=== PATIENT | male | born 1995 | race Asian ===

== ENCOUNTER 2017-03-31 08:18 | Emergency (ER) | END 2017-03-31 10:37 | disposition home or self-care (01) ==

== ENCOUNTER 2017-09-09 12:01 | Emergency (ER) | END 2017-09-09 13:53 | disposition home or self-care (01) ==

== ENCOUNTER 2017-12-21 19:10 | Emergency (ER) | END 2017-12-21 21:58 | disposition home or self-care (01) ==

== ENCOUNTER 2018-03-09 12:38 | Emergency (ER) | END 2018-03-09 14:57 | disposition home or self-care (01) ==

== ENCOUNTER 2018-06-15 08:08 | Emergency (ER) | payer OTHER ==
[~2018-06-15] VITALS: Wt 51.0 kg
[~2018-06-15 08:08] MED LIST: ACET500C5 PO; CEPH-443 PO; GUAI5SYR2 PO; HYDR-4011 PO; IBUP-1542 PO; NAPR-985 PO; ONDA8TAB14 PO
[2018-06-15 08:13] VITALS: BP 145/90; PULSE 99; RESP 18
[2018-06-15] MEDS ORDERED: ACETAMINOPHEN 500 MG TAB PO STA (08:28)
[2018-06-15] MEDS ORDERED: IBUP800T48 PO (08:29)
[2018-06-15] MEDS ORDERED: ACET325T33 PO (08:29)
[2018-06-15] MEDS ORDERED: AZIT250T PO (08:29)
[2018-06-15] MEDS ORDERED: PROM6.2515 PO (08:29)
[2018-06-15] MEDS ORDERED: IBUPROFEN 800 MG TAB PO ONE (08:30)
--- NOTE | 2018-06-15 09:24 | ERD ---
ER Documentation Chief Complaint Chief Complaint SORE THROAT,LOMELI, COUGH HPI 22-year-old male presenting with fever and sore throat with cough. Patient has a coarse cough with productive sputum. Patient has no shortness of breath. Took NyQuil last night but no medications today. Has a mild runny nose with mild sore throat. Medical history is asthma. NKDA. Surgical history cyst removal on his hand. Social history smokes 1/2 pack of cigarettes a day ROS All systems reviewed and are negative except as per history of present illness. Medications Home Meds Active Scripts Azithromycin* (Zithromax*) 250 Mg Tablet, 250 MG PO .ZPACK DIRECTED, #6 TAB TAKE 500 MG (2 TABS) THE FIRST DAY THEN 250 MG (1 TAB) DAYS 2-5 Prov:ANKIT BOOTH PA-C 06/15/18 Promethazine Hcl* (Promethazine Hcl* Syrup) 6.25 Mg/5 Ml Syrup, 6.25 MG PO Q6H PRN for COUGH, #100 ML Prov:ANKIT BOOTH PA-C 06/15/18 Acetaminophen* (Tylenol*) 325 Mg Tablet, 2 TAB PO Q8 PRN for PAIN AND OR ELEVATED TEMP, #20 TAB Prov:ANKIT BOOTH PA-C 06/15/18 Ibuprofen* (Motrin*) 800 Mg Tab, 800 MG PO Q6, #30 TAB Prov:ANKIT BOOTH PA-C 06/15/18 Ondansetron (Ondansetron Odt) 8 Mg Tab.rapdis, 8 MG PO Q6H PRN for NAUSEA AND/OR VOMITING, #8 TAB Prov:KAUSHAL JOHNSON MD 03/09/18 Naproxen* (Naprosyn*) 500 Mg Tablet, 500 MG PO BID PRN for PAIN AND/OR INFLAMMATION, #30 TAB Prov:SEFERINO COLLIER PA-C 12/21/17 Cephalexin* (Keflex*) 500 Mg Capsule, 500 MG PO QID for 5 Days, CAP Prov:SEFERINO COLLIER PA-C 12/21/17 Ibuprofen* (Motrin*) 600 Mg Tab, 600 MG PO Q8 PRN for PAIN AND OR ELEVATED TEMP, #15 TAB Prov:TREE RESENDIZ MD 09/09/17 Hydrocodone/Acetaminophen ([place] 5-325 Tablet) 1 Each Tablet, 1 TAB PO Q6H PRN for PAIN, #15 TAB Prov:TREE RESENDIZ MD 09/09/17 Guaifenesin-Dextromethorphan* (Robitussin* DM) 100MG/10MG/5ML Syrup, 10 ML PO Q6H for 5 Days, ML Prov:FERNANDO MONTALVO PA-C 03/31/17 Acetaminophen* (Tylophen*) 500 Mg Capsule, 1 CAP PO Q6H PRN for PAIN AND OR ELEVATED TEMP, #30 CAP Prov:FERNANDO MONTALVO PA-C 03/31/17 Naproxen* (Naprosyn*) 500 Mg Tablet, 500 MG PO BID PRN for PAIN AND/OR INFLAMMATION, #30 TAB Prov:FERNANDO MONTALVO PA-C 03/31/17 Allergies Allergies: Coded Allergies: No Known Allergy (Unverified , 03/09/18) PMhx/Soc History of Surgery: Yes (RIGHT WRIST SX) Anesthesia Reaction: No Hx Neurological Disorder: No Hx Respiratory Disorders: Yes (ASTHMA) Hx Cardiac Disorders: No Hx Psychiatric Problems: No Hx Miscellaneous Medical Probl: Yes (right wrist ganglion cyst) Hx Alcohol Use: Yes (occasional) Hx Substance Use: No Hx Tobacco Use: Yes Smoking Status: Current every day smoker FmHx Family History: No diabetes, No coronary disease, No other Physical Exam Vitals Vital Signs Date Temp Pulse Resp B/P (MAP) Pulse Ox O2 O2 Flow FiO2 Time Delivery Rate 06/15/18 100.0 08:38 06/15/18 100.0 08:38 06/15/18 100.1 99 18 145/90 99 08:13 (108) Physical Exam GENERAL: The patient is well-appearing, well-nourished, in no acute distress HEENT: Atraumatic. Conjunctivae are pink. Pupils equal, round, and reactive to light. There is no scleral icterus. Tympanic membranes clear bilaterally. Oropharynx clear. NECK: C-spine is soft and supple. There is no meningismus. There is no cervical lymphadenopathy. CHEST: Coarse breath sounds heard throughout with no focal rhonchi. No wheezing. HEART: Regular rate and rhythm. No murmurs, clicks, rubs or gallops. Results 24 hrs Current Medications Medications Dose Sig/Francisco Start Time Status Last (Trade) Ordered Route PRN Stop Time Admin Dose Reason Admin Ibuprofen 800 mg ONCE ONCE 06/15/18 DC 06/15/18 (Motrin) PO 08:30 08:38 06/15/18 08:31 1,000 mg ONCE STAT 06/15/18 DC 06/15/18 Acetaminophen PO 08:28 08:38 (Tylenol 06/15/18 08:29 Tab) Procedures/MDM MDM: 22-year-old male presenting with coarse breath sounds. I have concern for early pneumonia especially since patient has a history of asthma. I will treat prophylactically for aunt with antibiotics. Patient is discharged stricter precautions and told to follow-up with primary care within 1-2 days for close evaluation. Patient is told if symptoms change or worsen to return immediately to the ER. All questions answered at discharge Departure Diagnosis: Primary Impression: Cough Additional Impression: Sore throat Condition: Stable Patient Instructions: Self-Care for Sore Throats, Cough, Chronic, Uncertain Cause, (Adult) Referrals: [facility] YOU HAVE RECEIVED A MEDICAL SCREENING EXAM AND THE RESULTS INDICATE THAT YOU DO NOT HAVE A CONDITION THAT REQUIRES URGENT TREATMENT IN THE EMERGENCY DEPARTMENT. FURTHER EVALUATION AND TREATMENT OF YOUR CONDITION CAN WAIT UNTIL YOU ARE SEEN IN YOUR DOCTORS OFFICE WITHIN THE NEXT 1-2 DAYS. IT IS YOUR RESPONSIBILITY TO MAKE AN APPOINTMENT FOR FOLOW-UP CARE. IF YOU HAVE A PRIMARY DOCTOR --you should call your primary doctor and schedule an appointment IF YOU DO NOT HAVE A PRIMARY DOCTOR YOU CAN CALL OUR PHYSICIAN REFERRAL HOTLINE AT IF YOU CAN NOT AFFORD TO SEE A PHYSICIAN YOU CAN CHOSE FROM THE FOLLOWING [facility] CLINICS [facility] [id number] [facility]. [facility] [address] [facility] [facility] [address] [facility]. [facility] [address] [facility]. [facility] [address] [facility]. [facility]. [address] Additional Instructions: FOLLOW UP WITH YOUR PRIMARY CARE PHYSICIAN TOMORROW.Return to this facility if you are not improving as expected. ANKIT BOOTH PA-C Jun 15, 2018 09:24
== END 2018-06-15 08:44 | disposition home or self-care (01) ==
LOC: FTE 08:08
DX: J02.9 Acute pharyngitis, unspecified (principal); F17.210 Nicotine dependence, cigarettes, uncomplicated; J45.909 Unspecified asthma, uncomplicated
CPT/HCPCS: 99283

== ENCOUNTER 2018-06-17 02:29 | Emergency (ER) | payer OTHER ==
[~2018-06-17] VITALS: Ht 152.4 cm; Wt 51.8 kg
[~2018-06-17 02:29] MED LIST changes: +ACET325T33 PO; +AZIT250T PO; +IBUP800T48 PO; +PROM6.2515 PO
[2018-06-17 02:36] VITALS: Ht 152.4 cm; Wt 51.8 kg
--- NOTE | 2018-06-17 06:03 | ERD ---
ER Documentation Chief Complaint Chief Complaint nasal congestion/headache x 6 days. on atb HPI This is a 22-year-old male who presents here in emergency department with complaints of nasal congestion, productive cough for about 6 days. Stated that he is already on azithromycin without relief. Denies headache, head injury, loss of consciousness, dizziness, neck pain, neck stiffness, throat pain, difficulty swallowing, difficulty breathing lying flat, shoulder pain, chest pain, back pain, abdominal pain, nausea, vomiting, constipation, diarrhea, urinary symptoms, loss of bowel and bladder control, trauma, injury, falls, difficulty walking due to pain, numbness or tingling sensation, calf pain, recent travel, recent major surgery in the last 3 weeks, calf pain, recent long travel, recent exposure to any illness, recent antibiotic use in the last 3 months, fever, chills, seizures. Past medical history: Surgical history: Social: Denies smoking, use of alcoholic beverages, use of illegal drugs. ROS All systems reviewed and are negative except as per history of present illness. Medications Home Meds Active Scripts Benzonatate* (Tessalon Perle*) 100 Mg Capsule, 100 MG PO Q8H PRN for COUGH, #15 CAP Prov:CAMILO ZALDIVAR 06/17/18 Ondansetron Hcl* (Zofran*) 4 Mg Tablet, 4 MG PO Q8H PRN for NAUSEA AND/OR VOMITING, #30 TAB Prov:CAMILO ZALDIVAR 06/17/18 Loratadine* (Loratadine*) 10 Mg Tablet, 10 MG PO DAILY, #30 TAB Prov:CAMILO ZALDIVAR 06/17/18 Prednisone* (Prednisone*) 20 Mg Tab, 40 MG PO DAILY for 4 Days, TAB Prov:CAMILO ZALDIVAR 06/17/18 Ibuprofen* (Motrin*) 600 Mg Tab, 600 MG PO Q6H PRN for PAIN AND OR ELEVATED TEMP, #30 TAB Prov:CAMILO ZALDIVAR 06/17/18 Amoxicillin/Potassium Clav (Amox-Clav 875-125 mg Tablet) 875-125 mg Tab, 1 TAB PO BID for 10 Days, #20 TAB Prov:CAMILO ZALDIVAR 06/17/18 Azithromycin* (Zithromax*) 250 Mg Tablet, 250 MG PO .AIDAN DIRECTED, #6 TAB TAKE 500 MG (2 TABS) THE FIRST DAY THEN 250 MG (1 TAB) DAYS 2-5 Prov:ANKIT BOOTH PA-C 06/15/18 Promethazine Hcl* (Promethazine Hcl* Syrup) 6.25 Mg/5 Ml Syrup, 6.25 MG PO Q6H PRN for COUGH, #100 ML Prov:ANKIT BOOTH PA-C 06/15/18 Acetaminophen* (Tylenol*) 325 Mg Tablet, 2 TAB PO Q8 PRN for PAIN AND OR ELEVATED TEMP, #20 TAB Prov:ANKIT BOOTH PA-C 06/15/18 Ibuprofen* (Motrin*) 800 Mg Tab, 800 MG PO Q6, #30 TAB Prov:ANKIT BOOTH PA-C 06/15/18 Ondansetron (Ondansetron Odt) 8 Mg Tab.rapdis, 8 MG PO Q6H PRN for NAUSEA AND/OR VOMITING, #8 TAB Prov:KAUSHAL JOHNSON MD 03/09/18 Naproxen* (Naprosyn*) 500 Mg Tablet, 500 MG PO BID PRN for PAIN AND/OR INFLAMMATION, #30 TAB Prov:SEFERINO COLLIER PA-C 12/21/17 Cephalexin* (Keflex*) 500 Mg Capsule, 500 MG PO QID for 5 Days, CAP Prov:SEFERINO COLLIERC 12/21/17 Ibuprofen* (Motrin*) 600 Mg Tab, 600 MG PO Q8 PRN for PAIN AND OR ELEVATED TEMP, #15 TAB Prov:TREE RESENDIZ MD 09/09/17 Hydrocodone/Acetaminophen ([place] 5-325 Tablet) 1 Each Tablet, 1 TAB PO Q6H PRN for PAIN, #15 TAB Prov:TREE RESENDIZ MD 09/09/17 Guaifenesin-Dextromethorphan* (Robitussin* DM) 100MG/10MG/5ML Syrup, 10 ML PO Q6H for 5 Days, ML Prov:FERNANDO MONTALVO PA-C 03/31/17 Acetaminophen* (Tylophen*) 500 Mg Capsule, 1 CAP PO Q6H PRN for PAIN AND OR E LEVATED TEMP, #30 CAP Prov:CIARA MONTALVOArik Carson PA-C 03/31/17 Naproxen* (Naprosyn*) 500 Mg Tablet, 500 MG PO BID PRN for PAIN AND/OR INFLAMMATION, #30 TAB Prov:FERNANDO MONTALVOMoe CAMARGO 03/31/17 Allergies Allergies: Coded Allergies: No Known Allergy (Unverified , 03/09/18) PMhx/Soc History of Surgery: Yes (RIGHT WRIST SX) Anesthesia Reaction: No Hx Neurological Disorder: No Hx Respiratory Disorders: Yes (ASTHMA) Hx Cardiac Disorders: No Hx Psychiatric Problems: No Hx Miscellaneous Medical Probl: Yes (right wrist ganglion cyst) Hx Alcohol Use: Yes (occasional) Hx Substance Use: No Hx Tobacco Use: Yes Physical Exam Vitals Physical Exam Const: No acute distress Head: Atraumatic Eyes: Normal Conjunctiva ENT: Normal External Ears, Nose and Mouth. Bilateral ears: TMs are not erythematous with no bleeding. No discharge. No hearing loss. Nose: There is frontal and maxillary sinus tenderness palpation. Throat: Uvula is midline and nondisplaced. Tonsils are +1 bilaterally with redness but no exudates or tolerating secretions with patent airway. Speaks full and clear sentences. Neck: Full range of motion. No meningismus. No nuchal rigidity. No signs of meningeal irritation. Resp: Clear to auscultation bilaterally. No accessory muscle use in breathing no retractions noted. Cardio: Regular rate and rhythm, no murmurs Abd: Soft, non tender, non distended. Normal bowel sounds. No abdominal tenderness. Skin: No petechiae or rashes. Color appears normal for ethnicity. No skin tenting. No signs of severe dehydration. Back: No midline or flank tenderness Ext: No cyanosis, or edema Neur: Awake and alert. No neurological deficit. Psych: Normal Mood and Affect Procedures/MDM I offered diagnostic test but patient and family member strongly refused. Diagnostic tests: Clinical exam. Treatment: Not applicable. Re-evaluation: Not applicable. Differential diagnosis I have low suspicion for sepsis, meningitis, peritonsillar abscess, mastoiditis, airway obstruction, pneumonia, bronchospasm, status asthmaticus, severe dehydration, acute abdomen. Final diagnosis: Sinusitis. Bronchitis. Prescription: Continue taking your azithromycin. Augmentin added. Motrin. Claritin. Prednisone. Follow-up with PCP in the next 24-48 hours. Come back here in the emergency department for any new symptoms or any worsening symptoms. All questions and concerns were answered. Patient and family members verbalized understanding and agreed with plan of care. Hemodynamically stable on discharge. Departure Diagnosis: Primary Impression: Sinusitis Additional Impression: Bronchitis Condition: Stable Additional Instructions: Follow-up with PCP in the next 24-48 hours. Come back here in the emergency department for any new symptoms or any worsening symptoms. CAMILO ZALDIVAR Jun 17, 2018 06:03
[2018-06-17] MEDS ORDERED: AMOX1TAB10 PO (06:04)
[2018-06-17] MEDS ORDERED: IBUP-1542 PO (06:05)
[2018-06-17] MEDS ORDERED: ONDA4TAB8 PO (06:05)
[2018-06-17] MEDS ORDERED: LORA10TA3 PO (06:05)
[2018-06-17] MEDS ORDERED: PRED20TA PO (06:05)
[2018-06-17] MEDS ORDERED: BENZ-6 PO (06:06)
[2018-06-17 06:36] VITALS: BP 123/89; PULSE 88; RESP 16
== END 2018-06-17 06:38 | disposition home or self-care (01) ==
LOC: FTE 02:29
DX: J32.9 Chronic sinusitis, unspecified (principal); J40 Bronchitis, not specified as acute or chronic; Z87.891 Personal history of nicotine dependence
CPT/HCPCS: 99283

== ENCOUNTER 2018-10-28 23:17 | Emergency (ER) | payer OTHER ==
[~2018-10-28] VITALS: Ht 152.4 cm; Wt 56.1 kg
[~2018-10-28 23:17] MED LIST changes: +AMOX1TAB10 PO; +BENZ-6 PO; +LORA10TA3 PO; +ONDA4TAB8 PO; +PRED20TA PO
[2018-10-28 23:20] VITALS: BP 130/89; PULSE 120; RESP 18; Ht 152.4 cm; Wt 56.1 kg
--- NOTE | 2018-10-29 00:05 | ERD ---
ER Documentation Chief Complaint Chief Complaint chest tightness x 2 weeks HPI The patient is a 22-year-old male, tenting to the ER because of intermittent substernal chest tightness for the last 2 weeks, has been seen at multiple hospital, complains of intermittent cough, denies fever, chills, neck pain, chest pain with vomiting/radiation/exertion/diaphoresis, dyspnea, abdominal pain, vomiting, dysuria, complains of constipation. He smokes a pack a day and drinks socially, denies illicit drug Past medical history: Asthma Past surgical history: None Family history: Negative for cardiac history ROS All systems reviewed and are negative except as per history of present illness. Medications Home Meds Active Scripts Benzonatate* (Tessalon Perle*) 100 Mg Capsule, 100 MG PO Q8H PRN for COUGH, #15 CAP Prov:MATTYILAANAANDREWANA Hector 06/17/18 Ondansetron Hcl* (Zofran*) 4 Mg Tablet, 4 MG PO Q8H PRN for NAUSEA AND/OR VOMITING, #30 TAB Prov:ZENANDREWANA Hector 06/17/18 Loratadine* (Loratadine*) 10 Mg Tablet, 10 MG PO DAILY, #30 TAB Prov:MATTYEDWINCAMILO Young 06/17/18 Prednisone* (Prednisone*) 20 Mg Tab, 40 MG PO DAILY for 4 Days, TAB Prov:MATTYEDWINCAMILO Young 06/17/18 Ibuprofen* (Motrin*) 600 Mg Tab, 600 MG PO Q6H PRN for PAIN AND OR ELEVATED TEMP, #30 TAB Prov:CAMILO ZALDIVAR Hector 06/17/18 Amoxicillin/Potassium Clav (Amox-Clav 875-125 mg Tablet) 875-125 mg Tab, 1 TAB PO BID for 10 Days, #20 TAB Prov:MATTYEDWINCAMILO Young 06/17/18 Azithromycin* (Zithromax*) 250 Mg Tablet, 250 MG PO .AIDAN DIRECTED, #6 TAB TAKE 500 MG (2 TABS) THE FIRST DAY THEN 250 MG (1 TAB) DAYS 2-5 Prov:ANKIT BOOTH PA-C 06/15/18 Promethazine Hcl* (Promethazine Hcl* Syrup) 6.25 Mg/5 Ml Syrup, 6.25 MG PO Q6H PRN for COUGH, #100 ML Prov:ANKIT BOOTH PA-C 06/15/18 Acetaminophen* (Tylenol*) 325 Mg Tablet, 2 TAB PO Q8 PRN for PAIN AND OR ELEVATED TEMP, #20 TAB Prov:ANKIT BOOTH PA-C 06/15/18 Ibuprofen* (Motrin*) 800 Mg Tab, 800 MG PO Q6, #30 TAB Prov:ANKIT BOOTH PA-C 06/15/18 Ondansetron (Ondansetron Odt) 8 Mg Tab.rapdis, 8 MG PO Q6H PRN for NAUSEA AND/OR VOMITING, #8 TAB Prov:KAUSHAL JOHNSON MD 03/09/18 Naproxen* (Naprosyn*) 500 Mg Tablet, 500 MG PO BID PRN for PAIN AND/OR INFLAMMATION, #30 TAB Prov:SEFERINO COLLIER PA-C 12/21/17 Cephalexin* (Keflex*) 500 Mg Capsule, 500 MG PO QID for 5 Days, CAP Prov:SEFERINO COLLIERC 12/21/17 Ibuprofen* (Motrin*) 600 Mg Tab, 600 MG PO Q8 PRN for PAIN AND OR ELEVATED TEMP, #15 TAB Prov:TREE RESENDIZ MD 09/09/17 Hydrocodone/Acetaminophen ([place] 5-325 Tablet) 1 Each Tablet, 1 TAB PO Q6H PRN for PAIN, #15 TAB Prov:TREE RESENDIZ MD 09/09/17 Guaifenesin-Dextromethorphan* (Robitussin* DM) 100MG/10MG/5ML Syrup, 10 ML PO Q6H for 5 Days, ML Prov:FERNANDO MONTALVO PA-C 03/31/17 Acetaminophen* (Tylophen*) 500 Mg Capsule, 1 CAP PO Q6H PRN for PAIN AND OR ELEVATED TEMP, #30 CAP Prov:FERNANDO MONTALVO PA-C 03/31/17 Naproxen* (Naprosyn*) 500 Mg Tablet, 500 MG PO BID PRN for PAIN AND/OR INFLAMMATION, #30 TAB Prov:FERNANDO MONTALVO PA-C 03/31/17 Allergies Allergies: Coded Allergies: No Known Allergy (Unverified , 03/09/18) PMhx/Soc History of Surgery: Yes (RIGHT WRIST SX) Anesthesia Reaction: No Hx Neurological Disorder: No Hx Respiratory Disorders: Yes (ASTHMA, BRONCHITIS) Hx Cardiac Disorders: No Hx Psychiatric Problems: No Hx Miscellaneous Medical Probl: Yes (right wrist ganglion cyst) Hx Alcohol Use: Yes (occasional) Hx Substance Use: No Hx Tobacco Use: Yes Smoking Status: Current every day smoker Physical Exam Vitals Vital Signs Date Temp Pulse Resp B/P (MAP) Pulse Ox O2 O2 Flow FiO2 Time Delivery Rate 10/28/18 97.5 120 18 130/89 98 23:20 (103) Physical Exam Const: No acute distress. Head: Atraumatic. Eyes: Normal Conjunctiva. ENT: Normal External Ears, Nose and Mouth. Neck: Full range of motion. No meningismus. Resp: Clear to auscultation bilaterally. Cardio: Regular tachycardic Abd: Soft, non distended, normal bowel sounds, non tender. Skin: No petechiae or rashes. Back: No midline or flank tenderness. Ext: No cyanosis, or edema. Neur: Awake and alert. No focal deficit Psych: Normal Mood and Affect. Results 24 hrs Current Medications Medications Dose Sig/Francisco Start Time Status Last (Trade) Ordered Route PRN Stop Time Admin Dose Reason Admin Ketorolac 60 mg ONCE STAT 10/29/18 DC Tromethamine IM 00:14 (Toradol) 10/29/18 00:15 Procedures/MDM EKG: Read by emergency physician Rate/Rhythm: Sinus tachycardia 115 beats/min QRS, ST, T-waves: No ST elevation, no T inversion Impression: Abnormal EKG MEDICAL MAKING DECISION: The patient is 22-year-old male, presenting with thank you chest pain of unclear etiology I have ordered for Toradol 60 mg IM for pain The differential diagnoses considered include but are not limited to acute coronary syndrome, acute myocardial infarction, pericarditis, pulmonary embolism, aortic dissection, pneumonia, pleural effusion, pneumothorax, GERD, chest wall pain. Departure Diagnosis: Primary Impression: Chest pain Condition: Stable Comments He eloped from the emergency department in good stable condition BRADLEY LIZ MD Oct 29, 2018 00:05
[2018-10-29] MEDS ORDERED: KETOROLAC 60 MG INJ IM STA (00:14)
== END 2018-10-29 00:45 | disposition left against medical advice (07) ==
LOC: E/R 23:17
DX: R07.89 Other chest pain (principal); J45.909 Unspecified asthma, uncomplicated; F17.210 Nicotine dependence, cigarettes, uncomplicated
CPT/HCPCS: 93005